=== PATIENT | male | born 1970 | race Caucasian/White ===

== ENCOUNTER 2024-06-02 12:41 | Day surgery (SDC) | payer BC ==
[2024-06-02] MEDS ORDERED: ALBUMIN HUMAN 25% 50 ML in EMPTY BAG 1 BAG IVPB SCH (13:15)
[2024-06-02 13:26] VITALS: TEMP 97.8
[2024-06-02 13:28] LABS: Mean Platelet Volume 8.8; Platelet Count 118 k/uL (150-450)
[2024-06-02 13:34] LABS: African American GFR (CKD) >90 (>60 ml/min/1.73 sqM); Non-African American GFR(CKD) >90 (>60 ml/min/1.73 sqM)
[2024-06-02 14:03] LABS: INR 1.9 (<1.2); Prothrombin Time 19.6 sec (10.0-12.5)
[2024-06-02 14:23] VITALS: RESP 16
[2024-06-02 15:00] VITALS: BP 105/51; PULSE 66
--- NOTE | 2024-06-03 07:41 | US ---
EXAMINATION TYPE: US paracentesis abd w/image DATE OF EXAM: 06/02/2024 2:21 PM COMPARISON: prior paracentesis. 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 Deepak Hernandez PROCEDURE: Informed consent was obtained. The risks of the procedure were extensively explained incl uding risk of damage to surrounding bowel with perforation and need for additional procedures. Proced ure was performed in the ultrasound procedure suite. Ultrasound imaging of the abdomen demonstrate as citic fluid. An appropriate access site was localized to the right lower abdomen. Timeout was taken p er protocol. The skin was prepped and draped in the usual sterile fashion and then locally anesthetiz ed with 1% lidocaine. The peritoneal cavity was then accessed via a 5-Divehi one-step needle/cathete r. Approximately 4600 mL of clear straw-colored fluid was obtained. Postprocedural imaging of the ab domen demonstrate a minimal amount of abdominal fluid. Patient tolerated procedure well without immediate complication. Hemostasis at the procedural site w as obtained with a sterile bandage placed. The patient was monitored in the holding area following th e procedure and was subsequently discharged in stable condition. IMPRESSION: Ultrasound guided paracentesis, with approximately 4600 mL of clear straw-colored fluid drained. No i mmediate complications were evident. [facility], , 06/03/2024 7:38 AM
== END 2024-06-02 14:55 | disposition home or self-care (01) ==
LOC: RADPROMAIN 12:41
PROVIDERS: ATTEND Internal Medicine
DX: K70.31 Alcoholic cirrhosis of liver with ascites (principal)
CPT/HCPCS: 36415; 49083; 82565; 85049; 85610

== ENCOUNTER 2024-06-03 11:12 | Inpatient (IN) | payer BC, OTHER ==
--- NOTE | 2024-06-03 11:55 | ED ---
General Adult HPI - General Source: patient, EMS, RN notes reviewed Mode of arrival: EMS <Geno Moreno - Last Filed: 06/03/24 11:54> <Alba Juarez - Last Filed: 06/04/24 14:31> - General Chief complaint: Altered Mental Status Stated complaint: AMS Time Seen by Provider: 06/03/24 11:37 - History of Present Illness Initial comments: 53-year-old male with past medical history of alcoholic liver disease who presents to the emergency department with altered mental status. History is obtained from the residential nurse. Patient does come from the group home. He was incarcerated at the beginning of May. Patient reports that he had a paracentesis done yesterday. Procedure was performed at our facility. Patient was transferred back. They report today that the patient hasnt been acting himself. They state he has seemed confused. They checked his vitals. His oxygen was in the 80s. Patient does not wear oxygen. Does admit to a history of COPD. The patient's blood pressure was also notably to be low. He does take midodrine twice daily to assist with his blood pressure. Residential staff states that the patient did receive both doses of his midodrine today. Patient denies any chest pain. No abdominal pain. He is a poor historian cannot provide much history. (Alba Juarez) - Related Data Home Medications Medication Instructions Recorded Confirmed Budesonide-Formot 160-4.5 Mcg 2 puff INHALATION RT-BID 05/24/24 06/03/24 [Symbicort 160-4.5 Mcg Inhaler] Escitalopram [Lexapro] 20 mg PO HS 05/24/24 06/03/24 Folic Acid 1 mg PO DAILY 05/24/24 06/03/24 Furosemide [Lasix] 40 mg PO DAILY 05/24/24 06/03/24 Lactulose 10 gm PO TID 05/24/24 06/03/24 Levothyroxine Sodium [Synthroid] 100 mcg PO DAILY 05/24/24 06/03/24 Midodrine HCl [ProAmatine] 10 mg PO BID 05/24/24 06/03/24 Rifaximin [Xifaxan] 550 mg PO BID 05/24/24 06/03/24 Spironolactone 100 mg PO DAILY 05/24/24 06/03/24 Tamsulosin [Flomax] 0.4 mg PO HS 05/24/24 06/03/24 Albuterol Nebulized [Ventolin 2.5 mg INHALATION RT-DAILY PRN 06/03/24 06/03/24 Nebulized] Boost High Protein 1 can PO HS 06/03/24 06/03/24 Ferrous Sulfate [Feosol] 325 mg PO BID 06/03/24 06/03/24 Ipratropium-Albuterol Nebulize 3 ml INHALATION RT-BID 06/03/24 06/03/24 [Duoneb 0.5 mg-3 mg/3 ml Soln] Thiamine [Vitamin B-1] 100 mg PO DAILY 06/03/24 06/03/24 Allergies Allergy/AdvReac Type Severity Reaction Status Date / Time aspirin Allergy Rash/Hives Verified 06/03/24 12:36 Review of Systems ROS Other: All systems not noted in ROS Statement are negative. <Geno Moreno - Last Filed: 06/03/24 11:54> ROS Other: All systems not noted in ROS Statement are negative. <Alba Juarez - Last Filed: 06/04/24 14:31> ROS Statement: Those systems with pertinent positive or pertinent negative responses have been documented in the HPI. Past Medical History Past Medical History: COPD, Hypertension, Liver Disease Additional Past Medical History / Comment(s): enlarged prostate, ETOH abuse, hypotension, PTSD History of Any Multi-Drug Resistant Organisms: None Reported Past Surgical History: No Surgical Hx Reported Past Anesthesia/Blood Transfusion Reactions: No Reported Reaction Past Psychological History: PTSD Smoking Status: Former smoker Past Alcohol Use History: Abuse Past Drug Use History: None Reported - Past Family History Father Family Medical History: No Reported History <Geno Moreno - Last Filed: 06/03/24 11:54> General Exam Limitations: altered mental status General appearance: alert Head exam: Present: atraumatic, normocephalic, normal inspection Eye exam: Present: normal appearance, PERRL, EOMI. Absent: scleral icterus, conjunctival injection, periorbital swelling ENT exam: Present: mucous membranes dry Respiratory exam: Present: wheezes Cardiovascular Exam: Present: regular rate, normal rhythm, normal heart sounds. Absent: systolic murmur, diastolic murmur, rubs, gallop, clicks GI/Abdominal exam: Present: soft, normal bowel sounds. Absent: distended, tenderness, guarding, rebound, rigid Extremities exam: Present: normal inspection, full ROM, normal capillary refill. Absent: tenderness, pedal edema, joint swelling, calf tenderness Neurological exam: Present: altered Skin exam: Present: warm, dry, intact, normal color. Absent: rash <Alba Juarez - Last Filed: 06/04/24 14:31> Course Vital Signs 06/03/24 06/03/24 06/03/24 11:13 13:54 16:51 Temperature 98.5 F 98.2 F Pulse Rate 93 73 85 Pulse Rate [ Pulse Oximetery ] Respiratory 22 18 17 Rate Blood Pressure 105/63 124/75 100/70 Blood Pressure [Right Arm] O2 Sat by Pulse 89 L 98 94 L Oximetry 06/03/24 06/03/24 17:42 18:00 Temperature 98.3 F Pulse Rate 78 Pulse Rate [ 76 Pulse Oximetery ] Respiratory 18 18 Rate Blood Pressure 99/57 Blood Pressure 102/57 [Right Arm] O2 Sat by Pulse 95 95 Oximetry Medical Decision Making - Lab Data Result diagrams: 06/04/24 05:37 06/04/24 05:37 <Alba Juarez A - Last Filed: 06/04/24 14:31> - Medical Decision Making Was pt. sent in by a medical professional or institution (CIARAN Isaac, CURB WORKER, urgent care, hospital, or senior care...) When possible be specific @ -group home Did you speak to anyone other than the patient for history (EMS, parent, family, police, friend...)? What history was obtained from this source @ -Spoke with the residential nurse for history Did you review nursing and triage notes (agree or disagree)? Why? @ -I reviewed and agree with nursing and triage notes Were old charts reviewed (outside hosp., previous admission, EMS record, old EKG, old radiological studies, urgent care reports/EKG's, senior care records)? Report findings @ -I reviewed the paracentesis procedure note from yesterday done by Dr. Hernandez. I also reviewed the patient's medical list which came from group home Differential Diagnosis (chest pain, altered mental status, abdominal pain women, abdominal pain men, vaginal bleeding, weakness, fever, dyspnea, syncope, headache, dizziness, GI bleed, back pain, seizure, CVA, palpatations, mental health, musculoskeletal)? @ -Differential Altered Mental Status: Hypoglycemia, DKA, hypercapnia, ETOH, overdose, CO poisoning, trauma, myxedema coma, HTN encephalopathy, infection, encephalitis, psychosis, intercranial hemorrhage, hepatic encephalopathy, meningitis, CVA, this is not meant to be an all-inclusive list EKG interpreted by me (3pts min.). @ -Yes and demonstrate sinus rhythm with a rate of 74. VT interval 132. QRS 142. QTc of 425. No acute ST segment elevations or depressions X-rays interpreted by me (1pt min.). @ -Yes which demonstrates possible pneumonia CT interpreted by me (1pt min.). @ -Yes which demonstrates no acute process U/S interpreted by me (1pt. min.). @ -None done What testing was considered but not performed or refused? (CT, X-rays, U/S, lab s)? Why? @ -None What meds were considered but not given or refused? Why? @ -None Did you discuss the management of the patient with other professionals (professionals i.e. , PA, CURB WORKER, lab, RT, psych nurse, pediatric social worker, chemical plant worker, teacher, public affairs officer, child support case officer)? Give summary @ -Dr. Toribio from [facility] who will admit the patient Was smoking cessation discussed for >3mins.? @ -No Was critical care preformed (if so, how long)? @ -No Were there social determinants of health that impacted care today? How? (Homelessness, low income, unemployed, alcoholism, drug addiction, transportation, low edu. Level, literacy, decrease access to med. care, residential, rehab)? @ -Patient currently from residential Was there de-escalation of care discussed even if they declined (Discuss DNR or withdrawal of care, Hospice)? DNR status @ -No What co-morbidities impacted this encounter? (DM, HTN, Smoking, COPD, CAD, Cancer, CVA, ARF, Chemo, Hep., AIDS, mental health diagnosis, sleep apnea, morbid obesity)? @ -Liver failure secondary to alcohol abuse Was patient admitted / discharged? Hospital course, mention meds given and route, prescriptions, significant lab abnormalities, going to OR and other pertinent info. @ -Upon arrival patient seen and evaluated in bed 6. Thorough history and physical exam was performed. Patient placed on continuous pulse ox and cardiac monitoring. Oxygen is in the 80s and therefore he is put on supplemental oxygen. They did state that the patient was hypotensive however this is improved upon arrival. Laboratory studies were conducted. CT of the brain was performed as well as a chest x-ray. Chest x-ray demonstrated possible pneumonia. Patient continues to be altered in the room. He is not oriented to place or time. Patient will be admitted due to encephalopathy with history of liver failure with pneumonia Undiagnosed new problem with uncertain prognosis? @ -No Drug Therapy requiring intensive monitoring for toxicity (Heparin, Nitro, Insulin, Cardizem)? @ -No Were any procedures done? @ -No Diagnosis/symptom? @ -Acute encephalopathy, acute pneumonia, history of liver failure Acute, or Chronic, or Acute on Chronic? @ -Acute Uncomplicated (without systemic symptoms) or Complicated (systemic symptoms)? @ -Complicated Side effects of treatment? @ -No Exacerbation, Progression, or Severe Exacerbation? @ -No Poses a threat to life or bodily function? How? (Chest pain, USA, DC, pneumonia, PE, COPD, DKA, ARF, appy, cholecystitis, CVA, Diverticulitis, Homicidal, Suicidal, threat to staff... and all critical care pts) @ -Yes as patient is altered from his baseline (Alba Juarez) - Lab Data Lab Results 06/03/24 06/03/24 06/03/24 Range/Units 11:30 11:57 11:57 WBC 5.4 (3.8-10.6) k/uL RBC 3.13 L (4.30-5.90) m/uL Hgb 9.5 L (13.0-17.5) gm/dL Hct 32.1 L (39.0-53.0) % MCV 102.5 H (80.0-100.0) fL MCH 30.5 (25.0-35.0) pg MCHC 29.7 L (31.0-37.0) g/dL RDW 17.6 H (11.5-15.5) % Plt Count 104 L (150-450) k/uL MPV 8.4 Neutrophils % (Manual) 73 % Band Neuts % (Manual) 3 % Lymphocytes % (Manual) 11 % Monocytes % (Manual) 11 % Eosinophils % (Manual) 2 % Neutrophils # (Manual) 4.10 (1.3-7.7) k/uL Lymphocytes # (Manual) 0.59 L (1.0-4.8) k/uL Monocytes # (Manual) 0.59 (0-1.0) k/uL Eosinophils # (Manual) 0.11 (0-0.7) k/uL Nucleated RBCs 0 (0-0) /100 WBC Manual Slide Review Performed Hypochromasia Moderate Anisocytosis Slight Macrocytosis Moderate PT 19.7 H (10.0-12.5) sec INR 1.9 H (<1.2) APTT 34.8 H (22.0-30.0) sec Sodium (137-145) mmol/L Potassium (3.5-5.1) mmol/L Chloride (98-107) mmol/L Carbon Dioxide (22-30) mmol/L Anion Gap mmol/L BUN (9-20) mg/dL Creatinine (0.66-1.25) mg/dL Est GFR (CKD-EPI)AfAm (>60 ml/min/1.73 sqM) Est GFR (CKD-EPI)NonAf (>60 ml/min/1.73 sqM) Glucose (74-99) mg/dL Lactic Ac Sepsis Rflx Plasma Lactic Acid Eric (0.7-2.0) mmol/L Calcium (8.4-10.2) mg/dL Total Bilirubin (0.2-1.3) mg/dL AST (17-59) U/L ALT (4-49) U/L Alkaline Phosphatase (38-126) U/L Ammonia (<30) umol/L Troponin I (0.000-0.034) ng/mL Total Protein (6.3-8.2) g/dL Albumin (3.5-5.0) g/dL Urine Color Urine Appearance (Clear) Urine pH (5.0-8.0) Ur Specific [place] (1.001-1.035) Urine Protein (Negative) Urine Glucose (UA) (Negative) Urine Ketones (Negative) Urine Blood (Negative) Urine Nitrite (Negative) Urine Bilirubin (Negative) Urine Urobilinogen (<2.0) mg/dL Ur Leukocyte Esterase (Negative) Urine Opiates Screen (NotDetected) Ur Oxycodone Screen (NotDetected) Urine Methadone Screen (NotDetected) Ur Barbiturates Screen (NotDetected) U Tricyclic Antidepress (NotDetected) Ur Phencyclidine Scrn (NotDetected) Ur Amphetamines Screen (NotDetected) U Methamphetamines Scrn (NotDetected) U Benzodiazepines Scrn (NotDetected) Urine Cocaine Screen (NotDetected) U Marijuana (THC) Screen (NotDetected) Influenza Type A (PCR) Not Detected (Not Detectd) Influenza Type B (PCR) Not Detected (Not Detectd) RSV (PCR) Not Detected (Not Detectd) SARS-CoV-2 (PCR) Not Detected (Not Detectd) 06/03/24 06/03/24 06/03/24 Range/Units 11:57 11:57 11:57 WBC (3.8-10.6) k/uL RBC (4.30-5.90) m/uL Hgb (13.0-17.5) gm/dL Hct (39.0-53.0) % MCV (80.0-100.0) fL MCH (25.0-35.0) pg MCHC (31.0-37.0) g/dL RDW (11.5-15.5) % Plt Count (150-450) k/uL MPV Neutrophils % (Manual) % Band Neuts % (Manual) % Lymphocytes % (Manual) % Monocytes % (Manual) % Eosinophils % (Manual) % Neutrophils # (Manual) (1.3-7.7) k/uL Lymphocytes # (Manual) (1.0-4.8) k/uL Monocytes # (Manual) (0-1.0) k/uL Eosinophils # (Manual) (0-0.7) k/uL Nucleated RBCs (0-0) /100 WBC Manual Slide Review Hypochromasia Anisocytosis Macrocytosis PT (10.0-12.5) sec INR (<1.2) APTT (22.0-30.0) sec Sodium 132 L (137-145) mmol/L Potassium 3.6 (3.5-5.1) mmol/L Chloride 102 (98-107) mmol/L Carbon Dioxide 25 (22-30) mmol/L Anion Gap 5 mmol/L BUN 12 (9-20) mg/dL Creatinine 0.44 L (0.66-1.25) mg/dL Est GFR (CKD-EPI)AfAm >90 (>60 ml/min/1.73 sqM) Est GFR (CKD-EPI)NonAf >90 (>60 ml/min/1.73 sqM) Glucose 107 H (74-99) mg/dL Lactic Ac Sepsis Rflx Plasma Lactic Acid Eric 3.3 H* (0.7-2.0) mmol/L Calcium 7.6 L (8.4-10.2) mg/dL Total Bilirubin 3.6 H (0.2-1.3) mg/dL AST 92 H (17-59) U/L ALT 28 (4-49) U/L Alkaline Phosphatase 70 (38-126) U/L Ammonia 37 H (<30) umol/L Troponin I 0.013 (0.000-0.034) ng/mL Total Protein 6.5 (6.3-8.2) g/dL Albumin 2.2 L (3.5-5.0) g/dL Urine Color Urine Appearance (Clear) Urine pH (5.0-8.0) Ur Specific [place] (1.001-1.035) Urine Protein (Negative) Urine Glucose (UA) (Negative) Urine Ketones (Negative) Urine Blood (Negative) Urine Nitrite (Negative) Urine Bilirubin (Negative) Urine Urobilinogen (<2.0) mg/dL Ur Leukocyte Esterase (Negative) Urine Opiates Screen (NotDetected) Ur Oxycodone Screen (NotDetected) Urine Methadone Screen (NotDetected) Ur Barbiturates Screen (NotDetected) U Tricyclic Antidepress (NotDetected) Ur Phencyclidine Scrn (NotDetected) Ur Amphetamines Screen (NotDetected) U Methamphetamines Scrn (NotDetected) U Benzodiazepines Scrn (NotDetected) Urine Cocaine Screen (NotDetected) U Marijuana (THC) Screen (NotDetected) Influenza Type A (PCR) (Not Detectd) Influenza Type B (PCR) (Not Detectd) RSV (PCR) (Not Detectd) SARS-CoV-2 (PCR) (Not Detectd) 06/03/24 06/03/24 06/03/24 Range/Units 13:18 14:23 14:23 WBC (3.8-10.6) k/uL RBC (4.30-5.90) m/uL Hgb (13.0-17.5) gm/dL Hct (39.0-53.0) % MCV (80.0-100.0) fL MCH (25.0-35.0) pg MCHC (31.0-37.0) g/dL RDW (11.5-15.5) % Plt Count (150-450) k/uL MPV Neutrophils % (Manual) % Band Neuts % (Manual) % Lymphocytes % (Manual) % Monocytes % (Manual) % Eosinophils % (Manual) % Neutrophils # (Manual) (1.3-7.7) k/uL Lymphocytes # (Manual) (1.0-4.8) k/uL Monocytes # (Manual) (0-1.0) k/uL Eosinophils # (Manual) (0-0.7) k/uL Nucleated RBCs (0-0) /100 WBC Manual Slide Review Hypochromasia Anisocytosis Macrocytosis PT (10.0-12.5) sec INR (<1.2) APTT (22.0-30.0) sec Sodium (137-145) mmol/L Potassium (3.5-5.1) mmol/L Chloride (98-107) mmol/L Carbon Dioxide (22-30) mmol/L Anion Gap mmol/L BUN (9-20) mg/dL Creatinine (0.66-1.25) mg/dL Est GFR (CKD-EPI)AfAm (>60 ml/min/1.73 sqM) Est GFR (CKD-EPI)NonAf (>60 ml/min/1.73 sqM) Glucose (74-99) mg/dL Lactic Ac Sepsis Rflx Y Plasma Lactic Acid Eric (0.7-2.0) mmol/L Calcium (8.4-10.2) mg/dL Total Bilirubin (0.2-1.3) mg/dL AST (17-59) U/L ALT (4-49) U/L Alkaline Phosphatase (38-126) U/L Ammonia (<30) umol/L Troponin I (0.000-0.034) ng/mL Total Protein (6.3-8.2) g/dL Albumin (3.5-5.0) g/dL Urine Color Yellow Urine Appearance Clear (Clear) Urine pH 6.5 (5.0-8.0) Ur Specific [place] 1.012 (1.001-1.035) Urine Protein Negative (Negative) Urine Glucose (UA) Negative (Negative) Urine Ketones Negative (Negative) Urine Blood Negative (Negative) Urine Nitrite Negative (Negative) Urine Bilirubin Negative (Negative) Urine Urobilinogen 8.0 (<2.0) mg/dL Ur Leukocyte Esterase Negative (Negative) Urine Opiates Screen Not Detected (NotDetected) Ur Oxycodone Screen Not Detected (NotDetected) Urine Methadone Screen Not Detected (NotDetected) Ur Barbiturates Screen Not Detected (NotDetected) U Tricyclic Antidepress Not Detected (NotDetected) Ur Phencyclidine Scrn Not Detected (NotDetected) Ur Amphetamines Screen Not Detected (NotDetected) U Methamphetamines Scrn Not Detected (NotDetected) U Benzodiazepines Scrn Not Detected (NotDetected) Urine Cocaine Screen Not Detected (NotDetected) U Marijuana (THC) Screen Not Detected (NotDetected) Influenza Type A (PCR) (Not Detectd) Influenza Type B (PCR) (Not Detectd) RSV (PCR) (Not Detectd) SARS-CoV-2 (PCR) (Not Detectd) 06/03/24 Range/Units 15:30 WBC (3.8-10.6) k/uL RBC (4.30-5.90) m/uL Hgb (13.0-17.5) gm/dL Hct (39.0-53.0) % MCV (80.0-100.0) fL MCH (25.0-35.0) pg MCHC (31.0-37.0) g/dL RDW (11.5-15.5) % Plt Count (150-450) k/uL MPV Neutrophils % (Manual) % Band Neuts % (Manual) % Lymphocytes % (Manual) % Monocytes % (Manual) % Eosinophils % (Manual) % Neutrophils # (Manual) (1.3-7.7) k/uL Lymphocytes # (Manual) (1.0-4.8) k/uL Monocytes # (Manual) (0-1.0) k/uL Eosinophils # (Manual) (0-0.7) k/uL Nucleated RBCs (0-0) /100 WBC Manual Slide Review Hypochromasia Anisocytosis Macrocytosis PT (10.0-12.5) sec INR (<1.2) APTT (22.0-30.0) sec Sodium (137-145) mmol/L Potassium (3.5-5.1) mmol/L Chloride (98-107) mmol/L Carbon Dioxide (22-30) mmol/L Anion Gap mmol/L BUN (9-20) mg/dL Creatinine (0.66-1.25) mg/dL Est GFR (CKD-EPI)AfAm (>60 ml/min/1.73 sqM) Est GFR (CKD-EPI)NonAf (>60 ml/min/1.73 sqM) Glucose (74-99) mg/dL Lactic Ac Sepsis Rflx Plasma Lactic Acid Eric 1.7 (0.7-2.0) mmol/L Calcium (8.4-10.2) mg/dL Total Bilirubin (0.2-1.3) mg/dL AST (17-59) U/L ALT (4-49) U/L Alkaline Phosphatase (38-126) U/L Ammonia (<30) umol/L Troponin I (0.000-0.034) ng/mL Total Protein (6.3-8.2) g/dL Albumin (3.5-5.0) g/dL Urine Color Urine Appearance (Clear) Urine pH (5.0-8.0) Ur Specific [place] (1.001-1.035) Urine Protein (Negative) Urine Glucose (UA) (Negative) Urine Ketones (Negative) Urine Blood (Negative) Urine Nitrite (Negative) Urine Bilirubin (Negative) Urine Urobilinogen (<2.0) mg/dL Ur Leukocyte Esterase (Negative) Urine Opiates Screen (NotDetected) Ur Oxycodone Screen (NotDetected) Urine Methadone Screen (NotDetected) Ur Barbiturates Screen (NotDetected) U Tricyclic Antidepress (NotDetected) Ur Phencyclidine Scrn (NotDetected) Ur Amphetamines Screen (NotDetected) U Methamphetamines Scrn (NotDetected) U Benzodiazepines Scrn (NotDetected) Urine Cocaine Screen (NotDetected) U Marijuana (THC) Screen (NotDetected) Influenza Type A (PCR) (Not Detectd) Influenza Type B (PCR) (Not Detectd) RSV (PCR) (Not Detectd) SARS-CoV-2 (PCR) (Not Detectd) Disposition <Geno Moreno - Last Filed: 06/03/24 11:54> Is patient prescribed a controlled substance at d/c from ED?: No Time of Disposition: 15:35 Decision to Admit Reason: Admit from EC Decision Date: 06/03/24 Decision Time: 15:35 <Alba Juarez - Last Filed: 06/04/24 14:31> Clinical Impression: Acute encephalopathy, Hx of hepatic failure, Pneumonia Disposition: ADMITTED IP TO THIS HOSP Condition: Stable
--- NOTE | 2024-06-03 12:13 | XR ---
EXAMINATION TYPE: XR chest 2V DATE OF EXAM: 06/03/2024 12:06 PM COMPARISON: None. CLINICAL INDICATION: Male, 53 years old with history of altered mental status, TECHNIQUE: XR chest 2V view(s) obtained. FINDINGS: The heart size is normal. The pulmonary vasculature is normal. The right lower lobe infiltrate. Correlate for pneumonia. IMPRESSION: 1. Right lower lobe infiltrate. Correlate for pneumonia. [facility], , 06/03/2024 12:11 PM
[2024-06-03 12:20] LABS: Anisocytosis Slight; HCT 32.1 % (39.0-53.0); HGB 9.5 gm/dL (13.0-17.5); Hypochromasia Moderate; MCH 30.5 pg (25.0-35.0); MCHC 29.7 g/dL (31.0-37.0); MCV 102.5 fL (80.0-100.0); Macrocytosis Moderate; Mean Platelet Volume 8.4; Platelet Count 104 k/uL (150-450); RBC 3.13 m/uL (4.30-5.90); RDW 17.6 % (11.5-15.5); WBC 5.4 k/uL (3.8-10.6)
[2024-06-03 12:29] LABS: ALT 28 U/L (4-49); African American GFR (CKD) >90 (>60 ml/min/1.73 sqM); Albumin 2.2 g/dL (3.5-5.0); Anion Gap 5 mmol/L; Blood Urea Nitrogen 12 mg/dL (9-20); Calcium 7.6 mg/dL (8.4-10.2); Carbon Dioxide 25 mmol/L (22-30); Chloride 102 mmol/L (98-107); Glucose 107 mg/dL (74-99); Non-African American GFR(CKD) >90 (>60 ml/min/1.73 sqM); Sodium 132 mmol/L (137-145); Total Bilirubin 3.6 mg/dL (0.2-1.3); Total Protein 6.5 g/dL (6.3-8.2)
[2024-06-03 12:31] LABS: AST 92 U/L (17-59); Alkaline Phosphatase 70 U/L (38-126); Potassium 3.6 mmol/L (3.5-5.1)
[2024-06-03 12:34] LABS: INR 1.9 (<1.2); Partial Thromboplastin Time 34.8 sec (22.0-30.0); Prothrombin Time 19.7 sec (10.0-12.5)
[2024-06-03 13:17] LABS: Lactic Acid, Venous 3.3 mmol/L (0.7-2.0)
[2024-06-03 13:18] LABS: Influenza A Not Detected (Not Detectd); Influenza B Not Detected (Not Detectd); RSV Not Detected (Not Detectd)
[2024-06-03 13:48] LABS: Band Neutrophils % 3 %; Eosinophils # (M) 0.11 k/uL (0-0.7); Lymphocytes # (M) 0.59 k/uL (1.0-4.8); Monocytes # (M) 0.59 k/uL (0-1.0); Neutrophils % (M) 73 %; Nucleated Red Blood Cells 0 /100 WBC (0-0); Total Cells Counted 100
[2024-06-03 14:39] LABS: Appearance,Urine Clear (Clear); Color,Urine Yellow; PH, Urine 6.5 (5.0-8.0); Protein,Urine Negative (Negative); Specific Gravity,Urine 1.012 (1.001-1.035)
[2024-06-03 14:40] LABS: Bilirubin,Urine Negative (Negative); Blood,Urine Negative (Negative); Glucose,Urine (UA) Negative (Negative); Ketones,Urine Negative (Negative); Leukocyte Esterase,Urine Negative (Negative); Nitrite,Urine Negative (Negative)
--- NOTE | 2024-06-03 14:46 | CT ---
EXAMINATION TYPE: CT brain wo con CT DLP: 1139.4 mGycm, Automated exposure control for dose reduction was used. DATE OF EXAM: 06/03/2024 2:41 PM COMPARISON: None. CLINICAL INDICATION:Male, 53 years old with history of Altered mental status, AMS TECHNIQUE: Brain: Multiple axial CT images of the brain were obtained without IV contrast. . Coronal and sagitta l reformats reviewed. FINDINGS: Brain: Extra-axial spaces: No abnormal extra-axial fluid collections. Ventricular system: Within normal limits Cerebral parenchyma: No acute intraparenchymal hemorrhage or mass effect. The chairez-white junction is well differentiated. Nonspecific bilateral basal ganglia calcifications. Cerebellum: Unremarkable. Mass effect: No evidence of midline shift. Intracranial vasculature: unremarkable Soft tissues: Normal. Calvarium/osseous structures: No depressed skull fracture. Paranasal sinuses and mastoid air cells: Mild mucosal thickening of the right maxillary sinus with hy perostosis suggesting chronic sinusitis. The mastoid air cells are clear. Visualized orbits: Orbital contents are intact. IMPRESSION: No acute intracranial process. [facility], , 06/03/2024 2:44 PM
[2024-06-03 14:50] LABS: Amphetamine Screen,Urine Not Detected (NotDetected); Barbiturate Screen,Urine Not Detected (NotDetected); Benzodiazepines Screen,Urine Not Detected (NotDetected); Cocaine Screen,Urine Not Detected (NotDetected); Methadone Screen, Urine Not Detected (NotDetected); Opiate Screen,Urine Not Detected (NotDetected); Oxycodone Screen, Urine Not Detected (NotDetected); Phencyclidine Screen,Urine Not Detected (NotDetected); Tricyclic Antidepressant,Urine Not Detected (NotDetected); Urn Cannabinoid Scrn Not Detected (NotDetected)
[2024-06-03] MEDS ORDERED: NALOXONE 0.4 MG/ML 1 ML VIAL IV PRN (15:36)
[2024-06-03] MEDS ORDERED: PNEUMONIA PROTOCOL UTILIZED 1 EACH MISC PO PRN (15:44)
[2024-06-03] MEDS: IPRATROPIUM-ALBUTEROL 3 ML NEB INHALATION SCH (16:36)
[2024-06-03] MEDS: LACTULOSE 20 GM/30 ML CUP PO SCH (18:03)
[2024-06-03] MEDS: MIDODRINE 5 MG TAB PO SCH (18:04)
[2024-06-03] MEDS: SODIUM CHLORIDE 0.9% 1,000 ML IV SCH (18:05)
[2024-06-03] MEDS: SYMBICORT 160-4.5 MCG INHALER INHALATION SCH (20:37)
[2024-06-03] MEDS: AZITHROMYCIN 500 MG in SODIUM CHLORIDE 0.9% 250 ML IVPB STA (20:37)
[2024-06-03] MEDS: ESCITALOPRAM 20 MG TAB PO SCH (20:38)
[2024-06-03] MEDS: RIFAXIMIN 550 MG TABLET PO SCH (20:38)
[2024-06-03] MEDS: FERROUS SULFATE 325 MG TAB PO SCH (20:38)
[2024-06-03] MEDS ORDERED: IPRATROPIUM-ALBUTEROL 3 ML NEB INHALATION PRN (20:50)
[2024-06-03] MEDS ORDERED: BOOST HIGH PROTEIN PO SCH (21:00)
[2024-06-04] MEDS: LEVOTHYROXINE 100 MCG TAB PO SCH (06:31)
[2024-06-04 07:31] LABS: African American GFR (CKD) >90 (>60 ml/min/1.73 sqM); Anion Gap 7 mmol/L; Blood Urea Nitrogen 10 mg/dL (9-20); Calcium 7.6 mg/dL (8.4-10.2); Carbon Dioxide 23 mmol/L (22-30); Chloride 102 mmol/L (98-107); Glucose 72 mg/dL (74-99); Non-African American GFR(CKD) >90 (>60 ml/min/1.73 sqM); Potassium 3.7 mmol/L (3.5-5.1); Sodium 132 mmol/L (137-145)
--- NOTE | 2024-06-04 07:31 | XR ---
EXAMINATION TYPE: XR chest 2V DATE OF EXAM: 06/04/2024 7:19 AM COMPARISON: Chest radiographs from 06/03/2024 TECHNIQUE: XR chest 2V Frontal and lateral views of the chest. CLINICAL INDICATION:Male, 53 years old with history of pneumonia; FINDINGS: Lungs/Pleura: No pneumothorax or pleural effusion. Similar airspace opacities throughout the right leonardo ng and most pronounced within the right lung base. Pulmonary vascularity: Unremarkable. Heart/mediastinum: Cardiomediastinal silhouette is unremarkable. Musculoskeletal: No acute osseous pathology. IMPRESSION: Similar right lung patchy airspace opacities concerning for pneumonia. [facility], , 06/04/2024 7:29 AM
[2024-06-04 08:13] LABS: Anisocytosis Slight; Basophils % (A) 1 %; Eosinophils # (A) 0.2 k/uL (0-0.7); Eosinophils % (A) 3 %; HCT 34.1 % (39.0-53.0); HGB 10.6 gm/dL (13.0-17.5); Hypochromasia Marked; Lymphocytes % (A) 17 %; MCH 32.6 pg (25.0-35.0); MCHC 31.1 g/dL (31.0-37.0); MCV 104.7 fL (80.0-100.0); Macrocytosis Moderate; Mean Platelet Volume 8.5; Monocytes # (A) 0.6 k/uL (0-1.0); Monocytes % (A) 10 %; Neutrophils # (A) 3.8 k/uL (1.3-7.7); Neutrophils % (A) 67 %; Platelet Count 113 k/uL (150-450); RBC 3.26 m/uL (4.30-5.90); RDW 17.4 % (11.5-15.5); WBC 5.6 k/uL (3.8-10.6)
[2024-06-04 08:57] LABS: Poikilocytosis (M) Present; Rouleaux Present
[2024-06-04] MEDS: IPRATROPIUM-ALBUTEROL 3 ML NEB INHALATION SCH (10:02)
[2024-06-04] MEDS: FOLIC ACID 1 MG TAB PO SCH (10:22)
[2024-06-04] MEDS: SPIRONOLACTONE 25 MG TAB PO SCH (10:24)
[2024-06-04] MEDS: THIAMINE 100 MG TAB PO SCH (10:29)
[2024-06-04 12:58] LABS: ABG Base Excess 1.6 mmol/L; ABG HCO3 26 mmol/L (21-25); ABG Oxygen Saturation 97.6 % (94-97); ABG PCO2 38 mmHg (35-45); ABG PH 7.44 (7.35-7.45); ABG PO2 90 mmHg (83-108); ABG TCO2 27 mmol/L (19-24); Allen Test Performed? Yes
[2024-06-04] MEDS: AZITHROMYCIN 500 MG TAB PO SCH (14:26)
--- NOTE | 2024-06-04 16:55 | P.HPIM ---
History of Present Illness H&P Date: 06/04/24 Chief Complaint: Altered mental status 53-year-old male with past medical history of alcoholic liver disease who presents to the emergency department with altered mental status. History is obtained from the alf nurse. Patient does come from the detention. He was incarcerated at the beginning of May. Patient reports that he had a paracentesis done yesterday. Procedure was performed at our facility. Patient was transferred back. They report today that the patient hasnt been acting himself. They state he has seemed confused. They checked his vitals. His oxygen was in the 80s. Patient does not wear oxygen. Does admit to a history of COPD. The patient's blood pressure was also notably to be low. He does take midodrine twice daily to assist with his blood pressure. [facility] staff states that the patient did receive both doses of his midodrine today. Patient denies any chest pain. No abdominal pain. He is a poor historian cannot provide much history. Blood work completed in ED reveals a WBC of 5.4, hemoglobin of 9.5 and platelet count of 104, PT of 19.7 with INR of 1.9, sodium 132, potassium 3.6, BUNs/creatinine of 12/0.44, total bilirubin of 3.6, AST mildly elevated at 92, ammonia of 37 with trend up to 52 Review of Systems ROS unobtainable: due to mental status Past Medical History Past Medical History: COPD, Hypertension, Liver Disease Additional Past Medical History / Comment(s): enlarged prostate, ETOH abuse, hypotension, PTSD History of Any Multi-Drug Resistant Organisms: None Reported Past Surgical History: No Surgical Hx Reported Past Anesthesia/Blood Transfusion Reactions: No Reported Reaction Past Psychological History: PTSD Smoking Status: Former smoker Past Alcohol Use History: Abuse Additional Past Alcohol Use History / Comment(s): no alcohol at this itme Past Drug Use History: None Reported - Past Family History Father Family Medical History: No Reported History Medications and Allergies Home Medications Medication Instructions Recorded Confirmed Type Budesonide-Formot 160-4.5 Mcg 2 puff INHALATION RT-BID 05/24/24 06/03/24 History [Symbicort 160-4.5 Mcg Inhaler] Escitalopram [Lexapro] 20 mg PO HS 05/24/24 06/03/24 History Folic Acid 1 mg PO DAILY 05/24/24 06/03/24 History Furosemide [Lasix] 40 mg PO DAILY 05/24/24 06/03/24 History Lactulose 10 gm PO TID 05/24/24 06/03/24 History Levothyroxine Sodium [Synthroid] 100 mcg PO DAILY 05/24/24 06/03/24 History Midodrine HCl [ProAmatine] 10 mg PO BID 05/24/24 06/03/24 History Rifaximin [Xifaxan] 550 mg PO BID 05/24/24 06/03/24 History Spironolactone 100 mg PO DAILY 05/24/24 06/03/24 History Tamsulosin [Flomax] 0.4 mg PO HS 05/24/24 06/03/24 History Albuterol Nebulized [Ventolin 2.5 mg INHALATION RT-DAILY PRN 06/03/24 06/03/24 History Nebulized] Boost High Protein 1 can PO HS 06/03/24 06/03/24 History Ferrous Sulfate [Feosol] 325 mg PO BID 06/03/24 06/03/24 History Ipratropium-Albuterol Nebulize 3 ml INHALATION RT-BID 06/03/24 06/03/24 History [Duoneb 0.5 mg-3 mg/3 ml Soln] Thiamine [Vitamin B-1] 100 mg PO DAILY 06/03/24 06/03/24 History Allergies Allergy/AdvReac Type Severity Reaction Status Date / Time aspirin Allergy Rash/Hives Verified 06/03/24 12:36 Physical Exam Vitals: Vital Signs Temp Pulse Pulse Resp BP BP Pulse Ox 06/04/24 07:20 97.9 F 73 18 92/46 99 06/04/24 06:29 72 80/40 06/04/24 02:40 98.4 F 76 17 101/48 97 06/03/24 20:46 80 06/03/24 20:37 78 93 L 06/03/24 19:08 98 F 76 17 101/56 93 L 06/03/24 18:00 98.3 F 76 18 102/57 95 06/03/24 17:42 78 18 99/57 95 06/03/24 16:51 98.2 F 85 17 100/70 94 L 06/03/24 13:54 73 18 124/75 98 06/03/24 11:13 98.5 F 93 22 105/63 89 L Intake and Output 06/03/24 06/04/24 06/04/24 22:59 06:59 14:59 Other: # Voids 0 1 # Bowel Movements 0 2 Weight 78.471 kg General appearance: Patient opens eyes with verbal stimulation Head exam: Present: atraumatic, normocephalic, normal inspection Eye exam: Present: normal appearance, PERRL, EOMI. Absent: scleral icterus, conjunctival injection, periorbital swelling ENT exam: Present: mucous membranes dry Respiratory exam: Present: wheezes Cardiovascular Exam: Present: regular rate, normal rhythm, normal heart sounds. Absent: systolic murmur, diastolic murmur, rubs, gallop, clicks GI/Abdominal exam: Present: soft, normal bowel sounds. Absent: distended, tenderness, guarding, rebound, rigid Extremities exam: Present: normal inspection, full ROM, normal capillary refill. Absent: tenderness, pedal edema, joint swelling, calf tenderness Neurological exam: Present: Unable to evaluate due to mental status change Skin exam: Present: warm, dry, intact, normal color. Absent: rash Results CBC & Chem 7: 06/04/24 05:37 06/04/24 05:37 Labs: Abnormal Lab Results - Last 24 Hours (Table) 06/03/24 06/03/24 06/03/24 Range/Units 11:57 11:57 11:57 RBC 3.13 L (4.30-5.90) m/uL Hgb 9.5 L (13.0-17.5) gm/dL Hct 32.1 L (39.0-53.0) % MCV 102.5 H (80.0-100.0) fL MCHC 29.7 L (31.0-37.0) g/dL RDW 17.6 H (11.5-15.5) % Plt Count 104 L (150-450) k/uL Lymphocytes # (Manual) 0.59 L (1.0-4.8) k/uL PT 19.7 H (10.0-12.5) sec INR 1.9 H (<1.2) APTT 34.8 H (22.0-30.0) sec Sodium 132 L (137-145) mmol/L Creatinine 0.44 L (0.66-1.25) mg/dL Glucose 107 H (74-99) mg/dL Plasma Lactic Acid Eric (0.7-2.0) mmol/L Calcium 7.6 L (8.4-10.2) mg/dL Total Bilirubin 3.6 H (0.2-1.3) mg/dL AST 92 H (17-59) U/L Ammonia (<30) umol/L Albumin 2.2 L (3.5-5.0) g/dL 06/03/24 06/04/24 06/04/24 Range/Units 11:57 05:37 05:37 RBC 3.26 L (4.30-5.90) m/uL Hgb 10.6 L (13.0-17.5) gm/dL Hct 34.1 L (39.0-53.0) % MCV 104.7 H (80.0-100.0) fL MCHC (31.0-37.0) g/dL RDW 17.4 H (11.5-15.5) % Plt Count 113 L (150-450) k/uL Lymphocytes # (Manual) (1.0-4.8) k/uL PT (10.0-12.5) sec INR (<1.2) APTT (22.0-30.0) sec Sodium 132 L (137-145) mmol/L Creatinine 0.40 L (0.66-1.25) mg/dL Glucose 72 L (74-99) mg/dL Plasma Lactic Acid Eric 3.3 H* (0.7-2.0) mmol/L Calcium 7.6 L (8.4-10.2) mg/dL Total Bilirubin (0.2-1.3) mg/dL AST (17-59) U/L Ammonia 37 H (<30) umol/L Albumin (3.5-5.0) g/dL Thrombosis Risk Factor Assmnt - Choose All That Apply Any of the Below Risk Factors Present?: Yes Each Factor Represents 1 point: Abnormal pulmonary function (COPD), Age 41-60 years Thrombosis Risk Factor Assessment Total Risk Factor Score: 2 Thrombosis Risk Factor Assessment Level: Low Risk Assessment and Plan Assessment: 1. Altered mental status; hyperammonemia versus metabolic encephalopathy related to pneumonia -Patient will remain on IV antibiotic therapy; will order ABG -Monitor ammonia levels 2. Pneumonia; patient has been placed on azithromycin 500 mg p.o. daily; ceftriaxone 2 g IV every 24 hours; we will monitor CBC, CRP and procalcitonin 3. Hepatic encephalopathy; ammonia level 37 upon admission and has trended up to 52; patient remains on lactulose 10 mg p.o. 3 times daily; will escalate to 20 g p.o. 3 times daily; continue with Xifaxan 550 mg p.o. twice daily 4. Mild hyponatremia; remains on slow IV hydration with normal saline at rate of 75 cc an hour 5. Liver cirrhosis with ascites; currently on Aldactone 100 mg daily; Lasix 40 mg daily -Continue with folic acid and thiamine supplement 6. Hypertension; Aldactone 100 mg daily 7. COPD; not in exacerbation; continue with home inhaler therapy 8. Hypothyroidism; levothyroxine 100 mcg daily 9. BPH; Flomax 0.4 mg nightly 10. Anxiety/depression; Lexapro 20 mg p.o. nightly 11. Coagulopathy; related to liver disease; INR of 1.9 DVT prophylaxis; SCDs only; elevated INR secondary to liver disease CODE STATUS; full code
[2024-06-04] MEDS: LACTULOSE 20 GM/30 ML CUP PO SCH (17:26)
[2024-06-04] MEDS ORDERED: ZINC OXIDE 20% OINT 28.4 GM TUBE TOPICAL PRN (19:18)
--- NOTE | 2024-06-05 15:15 | P.PN ---
Subjective Progress Note Date: 06/05/24 53-year-old male with past medical history of alcoholic liver disease who presents to the emergency department with altered mental status. History is obtained from the assisted nurse. Patient does come from the [facility]. He was incarcerated at the beginning of May. Patient reports that he had a paracentesis done yesterday. Procedure was performed at our facility. Patient was transferred back. They report today that the patient hasnt been acting himself. They state he has seemed confused. They checked his vitals. His oxygen was in the 80s. Patient does not wear oxygen. Does admit to a history of COPD. The patient's blood pressure was also notably to be low. He does take midodrine twice daily to assist with his blood pressure. [facility] staff states that the patient did receive both doses of his midodrine today. Patient denies any chest pain. No abdominal pain. He is a poor historian cannot provide much history. Blood work completed in ED reveals a WBC of 5.4, hemoglobin of 9.5 and platelet count of 104, PT of 19.7 with INR of 1.9, sodium 132, potassium 3.6, BUNs/creatinine of 12/0.44, total bilirubin of 3.6, AST mildly elevated at 92, ammonia of 37 with trend up to 52 --Patient is more awake and responsive this morning; ammonia level is down to 24 from 52 yesterday; lactulose dose is increased to 20 g p.o. 4 times daily; continue with Xifaxan 550 mg twice daily -Recommend to continue with current dose of lactulose at time of discharge -Patient remains on IV antibiotics in form of Rocephin 2 g IV daily along with azithromycin 500 mg p.o. daily Possible discharge in next 24 to 48 hours pending clinical course Objective - Vital Signs Vital signs: Vital Signs Temp 97.9 F 06/05/24 06:56 Pulse 72 06/05/24 08:59 Resp 18 06/05/24 06:56 BP 92/56 06/05/24 06:56 Pulse Ox 99 06/05/24 06:56 FiO2 Intake & Output 06/04/24 06/05/24 06/05/24 18:59 06:59 18:59 Output Total 3 Balance -3 Output: Urine 3 Other: Voiding Method Diaper Diaper # Voids 1 # Bowel Movements 1 - Exam General appearance: Patient opens eyes with verbal stimulation Head exam: Present: atraumatic, normocephalic, normal inspection Eye exam: Present: normal appearance, PERRL, EOMI. Absent: scleral icterus, conjunctival injection, periorbital swelling ENT exam: Present: mucous membranes dry Respiratory exam: Present: wheezes Cardiovascular Exam: Present: regular rate, normal rhythm, normal heart sounds. Absent: systolic murmur, diastolic murmur, rubs, gallop, clicks GI/Abdominal exam: Present: soft, normal bowel sounds. Absent: distended, tenderness, guarding, rebound, rigid Extremities exam: Present: normal inspection, full ROM, normal capillary refill. Absent: tenderness, pedal edema, joint swelling, calf tenderness Neurological exam: Present: Unable to evaluate due to mental status change Skin exam: Present: warm, dry, intact, normal color. Absent: rash - Labs CBC & Chem 7: 06/04/24 05:37 06/04/24 05:37 Labs: Abnormal Lab Results - Last 24 Hours (Table) 06/04/24 06/04/24 Range/Units 12:26 12:55 ABG HCO3 26 H (21-25) mmol/L ABG Total CO2 27 H (19-24) mmol/L ABG O2 Saturation 97.6 H (94-97) % Hemoglobin 9.2 L (13.0-17.5) gm/dL Ammonia 52 H (<30) umol/L Microbiology - Last 24 Hours (Table) 06/03/24 17:30 Blood Culture - Preliminary Blood Assessment and Plan Assessment: 1. Altered mental status; hyperammonemia versus metabolic encephalopathy related to pneumonia -Patient will remain on IV antibiotic therapy; will order ABG -Monitor ammonia levels 2. Pneumonia; patient has been placed on azithromycin 500 mg p.o. daily; ceftriaxone 2 g IV every 24 hours; we will monitor CBC, CRP and procalcitonin 3. Hepatic encephalopathy; ammonia level 37 upon admission and has trended up to 52; patient remains on lactulose 10 mg p.o. 3 times daily; will escalate to 20 g p.o. 3 times daily; continue with Xifaxan 550 mg p.o. twice daily 4. Mild hyponatremia; remains on slow IV hydration with normal saline at rate of 75 cc an hour 5. Liver cirrhosis with ascites; currently on Aldactone 100 mg daily; Lasix 40 mg daily -Continue with folic acid and thiamine supplement 6. Hypertension; Aldactone 100 mg daily 7. COPD; not in exacerbation; continue with home inhaler therapy 8. Hypothyroidism; levothyroxine 100 mcg daily 9. BPH; Flomax 0.4 mg nightly 10. Anxiety/depression; Lexapro 20 mg p.o. nightly 11. Coagulopathy; related to liver disease; INR of 1.9 DVT prophylaxis; SCDs only; elevated INR secondary to liver disease CODE STATUS; full code
[2024-06-06] MEDS: METOPROLOL TARTRATE 25 MG TAB PO SCH (00:13)
[2024-06-06 12:03] LABS: African American GFR (CKD) >90 (>60 ml/min/1.73 sqM); Anion Gap 2 mmol/L; Blood Urea Nitrogen 8 mg/dL (9-20); Calcium 7.2 mg/dL (8.4-10.2); Carbon Dioxide 21 mmol/L (22-30); Chloride 107 mmol/L (98-107); Glucose 89 mg/dL (74-99); Non-African American GFR(CKD) >90 (>60 ml/min/1.73 sqM); Potassium 4.2 mmol/L (3.5-5.1); Sodium 130 mmol/L (137-145)
--- NOTE | 2024-06-06 14:23 | US ---
EXAMINATION TYPE: US abdomen limited DATE OF EXAM: 06/06/2024 COMPARISON: Ultrasound paracentesis 06/02/2024 CLINICAL INDICATION: Male, 53 years old with history of ascites; hx ascites. TECHNIQUE: Grayscale imaging of the abdomen for ascites. FINDINGS: All four quadrants scanned for ascites check. IMPRESSION: Moderate to large volume ascites. [facility], , 06/06/2024 2:21 PM
[2024-06-06 16:56] LABS: INR 1.8 (<1.2); Prothrombin Time 18.5 sec (10.0-12.5)
--- NOTE | 2024-06-06 22:18 | P.PN ---
Subjective Progress Note Date: 06/06/24 Patient is evaluated today resting in bed on medical floor. biological technical officer at the bedside. He reports intermittent episodes of shortness of breath. Had paracentesis here as an outpatient on Thursday with 4.6 L off. Abdominal ultrasound completed today reveals moderate to large amt of ascites in all quadrants and will request paracentesis with IR prior to discharge back to [facility]. His sodium level is 130. Normal saline will be discontinued. He remains on IV ceftriaxone for the right lung infiltrate. Remains afebrile and on room air. Review of Systems Constitutional: Denied any fatigue denied any fever. Cardio vascular: denied any chest pain, palpitations Gastrointestinal: denied any nausea, vomiting, diarrhea Pulmonary: Denied any shortness of breath reports intermittent cough Neurologic denied any new focal deficits All inpatient medications were reviewed and appropriate changes in these medica tions as dictated in the interval history and assessment and plan. PHYSICAL EXAMINATION: GENERAL: The patient is alert and oriented x3, not in any acute distress. Well developed, well nourished. Elderly, disheveled HEENT: Pupils are round and equally reacting to light. EOMI. No scleral icterus. No conjunctival pallor. Normocephalic, atraumatic. No pharyngeal erythema. No thyromegaly. CARDIOVASCULAR: S1 and S2 present. No murmurs, rubs, or gallops. PULMONARY: Chest is clear to auscultation, no wheezing or crackles. ABDOMEN: Soft, nontender, nondistended, normoactive bowel sounds. No palpable organomegaly. Large round abdomen MUSCULOSKELETAL: No joint swelling or deformity. EXTREMITIES: No cyanosis, clubbing, or pedal edema. NEUROLOGICAL: Gross neurological examination did not reveal any focal deficits. Generalized weakness SKIN: No rashes. Assessment and Plan 1. Altered mental status; hyperammonemia versus metabolic encephalopathy related to pneumonia -Patient will remain on IV antibiotic therapy; -Monitor ammonia levels now normalized and patient is continued on lactulose and rifaximin 2. Pneumonia; patient has been placed on azithromycin 500 mg p.o. daily; ceftriaxone 2 g IV every 24 hours; we will monitor CBC, CRP and procalcitonin 3. Hepatic encephalopathy; ammonia level 37 upon admission and has trended up to 52; patient remains on lactulose 10 mg p.o. 3 times daily; will escalate to 20 g p.o. 3 times daily; continue with Xifaxan 550 mg p.o. twice daily 4. Mild hyponatremia; worsening with IV fluids which will be discontinued 5. Liver cirrhosis with ascites; currently on Aldactone 100 mg daily; Lasix 40 mg daily -Continue with folic acid and thiamine supplement -Repeat abdominal ultrasound showing moderate to large ascities will request paracentesis prior to DC 6. Hypertension; Aldactone 100 mg daily 7. COPD; not in exacerbation; continue with home inhaler therapy 8. Hypothyroidism; levothyroxine 100 mcg daily 9. BPH; Flomax 0.4 mg nightly 10. Anxiety/depression; Lexapro 20 mg p.o. nightly 11. Coagulopathy; related to liver disease; INR of 1.9 DVT prophylaxis; SCDs only; elevated INR secondary to liver disease CODE STATUS; full code Return to [facility] in the next 24 hours post paracentesis. Resume lasix. Repeat BMP The impression and plan of care has been dictated by Kami Hastings Nurse Practitioner as directed. Dr. Yan MD I have performed a history and physical examination and medical decision making of this patient, discussed the same with the dictator, and agree with the dictators assessment and plan as written, documented as a scribe. Based on total visit time, I have performed more than 50% of this visit. Objective - Vital Signs Vital signs: Vital Signs Temp 98.3 F 06/06/24 07:45 Pulse 75 06/06/24 12:14 Resp 18 06/06/24 07:45 BP 91/47 06/06/24 07:45 Pulse Ox 95 06/06/24 07:45 FiO2 Intake & Output 06/05/24 06/06/24 06/06/24 18:59 06:59 18:59 Other: # Voids 2 2 1 # Bowel Movements 1 2 1 - Labs CBC & Chem 7: 06/04/24 05:37 06/06/24 11:01 Labs: Abnormal Lab Results - Last 24 Hours (Table) 06/06/24 Range/Units 11:01 Sodium 130 L (137-145) mmol/L Carbon Dioxide 21 L (22-30) mmol/L BUN 8 L (9-20) mg/dL Creatinine 0.38 L (0.66-1.25) mg/dL Calcium 7.2 L (8.4-10.2) mg/dL Microbiology - Last 24 Hours (Table) 06/03/24 17:30 Blood Culture - Preliminary Blood Assessment and Plan Time with Patient: Less than 30
[2024-06-07 07:47] VITALS: TEMP 98.5
[2024-06-07] MEDS: FUROSEMIDE 40 MG TAB PO SCH (11:10)
[2024-06-07 11:27] LABS: ALT 24 U/L (10-49); AST 54 U/L (14-35); Albumin 1.9 g/dL (3.8-4.9); Albumin/Globulin Ratio 0.48 Ratio (1.60-3.17); Alkaline Phosphatase 70 U/L (41-126); Blood Urea Nitrogen 7.2 mg/dL (9.0-27.0); Calcium 7.5 mg/dL (8.7-10.3); Carbon Dioxide 20.7 mmol/L (21.6-31.8); Chloride 105 mmol/L (96-109); Glucose 85 mg/dL (70-110); Potassium 4.5 mmol/L (3.5-5.5); Sodium 131 mmol/L (135-145); Total Bilirubin 2.2 mg/dL (0.3-1.2); Total Protein 5.9 g/dL (6.2-8.2)
[2024-06-07 14:25] VITALS: RESP 18
[2024-06-07 15:26] VITALS: PULSE 84
[2024-06-07 15:41] VITALS: BP 107/70
--- NOTE | 2024-06-07 15:43 | US ---
EXAMINATION TYPE: US paracentesis abd w/image DATE OF EXAM: 06/07/2024 CLINICAL HISTORY: 53-year-old male with ascites and distention, liver disease The procedure was discussed with the patient. The risks, complications, benefits, and alternatives we re discussed and any questions were answered. Informed consent was obtained. The patient was placed s upine on the ultrasound table and prepped and draped in the usual sterile fashion. All elements of maximal barrier technique were utilized. Ultrasound was utilized to determine the precise skin entry site along the left lower quadrant/left f lank. A 5 Vietnamese One-Step catheter and trocar technique was utilized to access the ascites collection under direct ultrasound guidance. Approximately 8 L of clear, straw-colored fluid was removed. Catheter was removed, hemostasis obtained, and a dressing placed. The patient was stable throughout the procedure and remained stable upon discharge from Department of Radiology. IMPRESSION: Successful therapeutic paracentesis under ultrasound guidance. 8 L of fluid removed. [facility], , 06/07/2024 3:41 PM
[2024-06-07] MEDS ORDERED: ALBUMIN HUMAN 25% IVPB ONE (16:30)
[2024-06-07] MEDS: ALBUMIN HUMAN 25% 50 ML in EMPTY BAG 1 BAG IVPB SCH (16:56)
[2024-06-07] MEDS ORDERED: TAMSULOSIN 0.4 MG CAP.ER.24H PO SCH (21:00)
--- NOTE | 2024-06-09 19:44 | P.DS ---
Providers Date of admission: 06/03/24 15:36 Attending physician: Della Toribio MD Primary care physician: Stated None Hospital Course: Final Diagnosis Altered mental status; hyperammonemia versus metabolic encephalopathy related to pneumonia Pneumonia community-acquired Mild hyponatremia hypervolemic Liver cirrhosis with ascites status post paracentesis with 12 L of fluid removed Hypertension COPD Hypothyroidism BPH Anxiety/depression Coagulopathy; related to liver disease; INR of 1.9 Thrombocytopenia from liver disease Discharge Disposition Patient is stable for return to assisted with overall guarded prognosis secondary to his chronic liver disease and his need for frequent paracentesis. Recommend to continue all same medications including lactulose 3 times a day and rifaximin. Hospital Course This is a 53-year-old male with medical history of liver cirrhosis with ascites and frequent paracentesis on an outpatient basis patient does have a standing order. He has history of COPD hypothyroidism BPH anxiety depression he was brought over to the hospital from the assisted secondary to altered mentation. After discussion with the nurse over at the assisted they state that patient has been incarcerated for 4 weeks on admission there he was alert x 3 he underwent a paracentesis on Thursday and since then he has had a slow decline in his mentation. He was found to have an elevated ammonia level of 37 with concern for hepatic encephalopathy as well as chest x-ray on admission showing a similar right lung patchy airspace opacity concerning for pneumonia. His white blood cell count has been normal at 5.4 hemoglobin at 9.5 his platelet count of 104 his sodium level was 132 on admission with a BUN of 12 creatinine 0.44 he had an elevated lactic acid of 3.3, total bilirubin of 3.6 and an AST of 92 ALT of 28 alk phos of 70 his ammonia level was 37 50-20 411 and he had troponin levels that were negative x 3. Urinalysis was negative for infection. His urine drug toxicology was unremarkable and patient was negative for influenza A/B Legionella RSV and COVID. Clinically patient had improved with treatment of the hyperammonemia with lactulose. He had an abdominal ultrasound completed which does reveal moderate to large volume ascites in all 4 quadrants. Patient did undergo paracentesis prior to discharge with 8 L of fluid removed. This was a therapeutic paracentesis. His blood culture has been negative. Patient was treated empirically with IV ceftriaxone and will not require any antibiotics on discharge. Will continue all same home medications. He received 4 bags of albumin post paracentesis and he will be discharged back to the assisted. Please see medication reconciliation for a list of current medications. Thank you for allowing us to participate in the care of this patient. The impression and plan of care has been dictated by Kami Hastings, Nurse Practitioner as directed. Dr. Yan MD I have performed a history and physical examination and medical decision making of this patient, discussed the same with the dictator, and agree with the dictators assessment and plan as written, documented as a scribe. Based on total visit time, I have performed more than 50% of this visit. Patient Condition at Discharge: Stable Plan - Discharge Summary Discharge Rx Participant: Yes New Discharge Prescriptions: Continue Escitalopram [Lexapro] 20 mg PO HS Rifaximin [Xifaxan] 550 mg PO BID Levothyroxine Sodium [Synthroid] 100 mcg PO DAILY Folic Acid 1 mg PO DAILY Lactulose 10 gm PO TID Budesonide-Formot 160-4.5 Mcg [Symbicort 160-4.5 Mcg Inhaler] 2 puff INHALATION RT-BID Albuterol Nebulized [Ventolin Nebulized] 2.5 mg INHALATION RT-DAILY PRN PRN Reason: Shortness Of Breath Ipratropium-Albuterol Nebulize [Duoneb 0.5 mg-3 mg/3 ml Soln] 3 ml INHALATION RT-BID Ferrous Sulfate [Iron (65 MG Elemental)] 325 mg PO BID Boost High Protein 1 can PO HS Tamsulosin [Flomax] 0.4 mg PO HS Spironolactone 100 mg PO DAILY Midodrine HCl [ProAmatine] 10 mg PO BID Furosemide [Lasix] 40 mg PO DAILY Thiamine [Vitamin B-1] 100 mg PO DAILY Discharge Medication List Budesonide-Formot 160-4.5 Mcg [Symbicort 160-4.5 Mcg Inhaler] 2 puff INHALATION RT-BID 05/24/24 [History] Escitalopram [Lexapro] 20 mg PO HS 05/24/24 [History] Folic Acid 1 mg PO DAILY 05/24/24 [History] Furosemide [Lasix] 40 mg PO DAILY 05/24/24 [History] Lactulose 10 gm PO TID 05/24/24 [History] Levothyroxine Sodium [Synthroid] 100 mcg PO DAILY 05/24/24 [History] Midodrine HCl [ProAmatine] 10 mg PO BID 05/24/24 [History] Rifaximin [Xifaxan] 550 mg PO BID 05/24/24 [History] Spironolactone 100 mg PO DAILY 05/24/24 [History] Tamsulosin [Flomax] 0.4 mg PO HS 05/24/24 [History] Albuterol Nebulized [Ventolin Nebulized] 2.5 mg INHALATION RT-DAILY PRN 06/03/24 [History] Boost High Protein 1 can PO HS 06/03/24 [History] Ferrous Sulfate [Iron (65 MG Elemental)] 325 mg PO BID 06/03/24 [History] Ipratropium-Albuterol Nebulize [Duoneb 0.5 mg-3 mg/3 ml Soln] 3 ml INHALATION RT-BID 06/03/24 [History] Thiamine [Vitamin B-1] 100 mg PO DAILY 06/03/24 [History] Follow up Appointment(s)/Referral(s): Rosa Maria Hook MD [STAFF PHYSICIAN] - 1 Week None,Stated [Primary Care Provider] - 1-2 days Ambulatory/Diagnostic Orders: Comprehensive Metabolic Panel [LAB.AMB] Time Frame: 3 Days, Location: None Selected Activity/Diet/Wound Care/Special Instructions: Return to the [facility] after recovery from paracentesis Discharge Disposition: DC/TRANSFER COURT/LAW
== END 2024-06-07 18:44 | DRG 194 ==
LOC: EC 11:12 → 4SSUR 15:36 → EEVIPCON 15:36 → 4SSUR 17:32
PROVIDERS: ADMIT Internal Medicine; ATTEND Internal Medicine
PROC: 0W9G3ZZ Drainage of Peritoneal Cavity, Percutaneous Approach (ICD-10-PCS; principal; 2024-06-07)
DX: J18.9 Pneumonia, unspecified organism (principal); D68.4 Acquired coagulation factor deficiency; K72.90 Hepatic failure, unspecified without coma; K76.82 Hepatic encephalopathy; E87.1 Hypo-osmolality and hyponatremia; J44.0 Chronic obstructive pulmonary disease with (acute) lower respiratory infection; I10 Essential (primary) hypertension; E03.9 Hypothyroidism, unspecified; F32.A Depression, unspecified; R18.8 Other ascites; K74.60 Unspecified cirrhosis of liver; K70.9 Alcoholic liver disease, unspecified; F41.9 Anxiety disorder, unspecified; N40.0 Benign prostatic hyperplasia without lower urinary tract symptoms; Z79.51 Long term (current) use of inhaled steroids; Z79.890 Hormone replacement therapy; Z79.899 Other long term (current) drug therapy; Z88.6 Allergy status to analgesic agent; Z87.891 Personal history of nicotine dependence
CPT/HCPCS: 36415; 36600; 49083; 51701; 51798; 70450; 71046; 76705; 80048; 80053; 80306; 81003; 82140; 82805; 83605; 84484; 85025; 85610; 85730; 87040; 87449; 87636; 93005; 94640; 94760; 99285